=== PATIENT | female | born 1990 | race Caucasian/White ===

== ENCOUNTER 2021-04-30 08:13 | Emergency (ER) | payer SELFPAY ==
[2021-04-30 08:24] VITALS: BP 127/77; PULSE 86; RESP 18; TEMP 36.9; O2SAT 98; BMI 27.4
--- NOTE | 2021-04-30 08:39 | W.ED.ABDPA2 ---
HPI - Abdominal Pain General: Chief Complaint: Abdominal Pain Stated Complaint: SEVERE ABD PAIN: LRQ Time Seen by Provider: 04/30/21 08:15 History of Present Illness: HPI narrative: 30-year-old female presents emergency complaining of right lower quadrant abdominal pain. She has had nausea and vomiting. She has not had any diarrhea. No hematochezia melena hematemesis coffee-ground emesis subjective low-grade fever. No previous episodes she has not noticed anything that seemed to exacerbate or relieve it. MD elicited complaint: abdominal pain Onset (ago): day(s) (3) Location: RLQ Severity: severe Quality: stabbing Radiation: none Exacerbating factors: eating and movement Relieving factors: rest Associated Symptoms: Reports anorexia, bloating, GI cramping, nausea and poor appetite; Denies belching, change in bowel habits, change in stool character, chills, coffee ground emesis, constipation, diarrhea, dyspepsia, dysuria, excessive flatus, fever(s), heartburn, hematochezia, hematuria, hematemesis, fecal incontinence, loose stools, melena, syncope and vomiting Related Data: Date of Last Menstrual Period: 04/30/21 Review of Systems Const: Denies: fever(s) or chills ENMT: Denies: throat pain, ear or mastoid pain, nasal discharge or nasal congestion Card: Denies: syncope Resp: Denies: dyspnea, productive cough or non-productive cough GI: Reports: nausea, bloating and GI cramping; Denies: vomiting, hematemesis, coffee ground emesis, heartburn, diarrhea, constipation, belching, excessive flatus, fecal incontinence, change in bowel habits, change in stool character, hematochezia or melena : Denies: dysuria or hematuria Skin/Breast: Denies: rash or pruritus [facility] ED Female Reproductive History: Date of last menstrual period: 04/30/21 Physical Exam Const: COMMON NORMALS: no acute distress GENERAL APPEARANCE: cooperative and comfortable ORIENTATION/CONSCIOUSNESS: Yes awake, Yes oriented to person, Yes oriented to place and Yes oriented to time HENMT: COMMON NORMALS: normocephalic, atraumatic and hearing grossly normal bilaterally HEAD & SCALP: normocephalic and atraumatic Neck/C-Spine: COMMON NORMALS: no JVD Resp: COMMON NORMALS: normal respiratory effort, No retractions, No use of accessory muscles and clear to auscultation bilaterally AUSCULTATION: clear to auscultation bilaterally Cardio: COMMON NORMALS: no JVD, regular rate, regular rhythm and No murmurs present (Cardio) RATE: regular rate RHYTHM: regular rhythm GI: COMMON NORMALS: No hepatosplenomegaly present AUSCULTATION: Yes normoactive bowel sounds PALPATION: Yes Tenderness to palpation present (GI) Details: RLQ, Yes Guarding due to palpation present (GI) in the RLQ and Yes No hepatosplenomegaly present Extremity: COMMON NORMALS: normal to inspection, capillary refill normal, no clubbing, cyanosis or edema, no calf tenderness and no pedal edema Neuro: SENSORIUM/ORIENTATION: Yes oriented to person, Yes oriented to place and Yes oriented to time Skin: COMMON NORMALS: no rashes or lesions noted GENERAL SKIN EXAM: no rashes or lesions noted Course Vital Signs: Vital signs: Vital Signs Temperature 98.5 F 04/30/21 08:24 Pulse Rate 63 04/30/21 11:15 Respiratory Rate 16 04/30/21 11:15 Blood Pressure 110/64 04/30/21 11:15 Pulse Oximetry 99 04/30/21 11:15 MDM - Abdominal Pain MDM Narrative: Medical decision making narrative: Labs imaging reviewed on the chart. CT shows colitis but otherwise nothing acute. Normal appendix. Discussed labs and imaging with the patient will discharge home n.p.o. except for small amounts of food with pain medications and antibiotics clear liquid diet for 24 to 48 hours and advance as tolerated. Lab Data: Labs: Lab Results 04/30/21 04/30/21 04/30/21 08:33 09:09 09:09 WBC 9.3 10^3/uL 10^3/ uL (4.0-10.0) RBC 5.29 10^6/uL 10^6 /uL (4.1-5.3) Hgb 16.8 g/dL H g/dL (11.5-15.3) Hct 49.4 % H % (37.0-47.0) MCV 93.4 fl fl (81-99) MCH 31.8 pg pg (28.0-34.0) MCHC 34.0 g/dL g/dL (30.0-36.0) RDW 12.1 % % (12.1-15.1) Plt Count 305 10^3/cmm 10^3 /cmm (130-400) MPV 11.6 fL H fL (7.4-10.4) Neut % (Auto) 67.6 % % Lymph % (Auto) 22.4 % % [place] % (Auto) 4.8 % % Eos % (Auto) 3.8 % % Baso % (Auto) 1.0 % % Neut # (Auto) 6.29 10^3/uL 10^3 /uL (1.8-7.7) Lymph # (Auto) 2.1 10^3/uL 10^3/ uL (0.8-4.8) [place] # (Auto) 0.5 10^3/uL 10^3/ uL (0.2-0.9) Eos # (Auto) 0.4 10^3/uL 10^3/ uL (0.0-0.8) Baso # (Auto) 0.1 10^3/uL 10^3/ uL (0.0-0.1) Nucleated RBC % (a uto) 0 % % Nucleated RBCs # 0.0 /100WBC /100W BC Sodium 132 mmol/L L mmol /L (136-145) Potassium 4.1 mmol/L mmol/L (3.5-5.1) Chloride 96 mmol/L L mmol/ L (98-107) Carbon Dioxide 22 mmol/L mmol/L (22-29) Anion Gap 18.1 (5-19) BUN 10 mg/dL mg/dL (6-20) Creatinine 0.5 mg/dL mg/dL (0.5-0.9) GFR Calculation 143.9 mL/min H mL /min (90-130) Glucose 406 mg/dL H mg/dL (65-115) Calculated Osmolal ity 290 mOsm/kg mOsm/ kg (285-295) Calcium 9.6 mg/dL mg/dL (8.5-10.5) Total Bilirubin 0.3 mg/dL mg/dL (0.15-1.2) AST 14 U/L U/L (0-32) ALT 18 U/L U/L (0-33) Alkaline Phosphata se 88 IU/L IU/L (35-105) Total Protein 7.6 g/dL g/dL (6.6-8.7) Albumin 4.1 g/dL g/dL (3.5-5.2) Globulin 3.5 g/dL g/dL (1.3-4.6) Lipase 27 U/L U/L (13-60) HCG, Qual Urine Color Yellow (Yellow) Urine Appearance Sl hazy (CLEAR) Urine pH 5 (5-7) Ur Specific Gravit y 1.010 (1.005-1.030) Urine Protein Neg (Negative) Urine Glucose (UA) 4+ H (Normal) Urine Ketones 1+ H (Negative) Urine Blood 3+ H (Negative) Urine Nitrate Negative (Negative) Urine Bilirubin Neg (Negative) Urine Urobilinogen Norm mg/dL mg/dL (Negative) Ur Leukocyte [place] ase Trace H (Negative) Urine RBC 0-4 /hpf H /hpf (0-2) Urine WBC 15-25 /hpf H /hpf (0-5) Ur Squamous Epith Cells 5-10 /hpf H /hpf (0-5) Amorphous Sediment Not Reportable Urine Bacteria Trace /hpf /hpf (NONE) 04/30/21 09:09 WBC RBC Hgb Hct MCV MCH MCHC RDW Plt Count MPV Neut % (Auto) Lymph % (Auto) [place] % (Auto) Eos % (Auto) Baso % (Auto) Neut # (Auto) Lymph # (Auto) [place] # (Auto) Eos # (Auto) Baso # (Auto) Nucleated RBC % (a uto) Nucleated RBCs # Sodium Potassium Chloride Carbon Dioxide Anion Gap BUN Creatinine GFR Calculation Glucose Calculated Osmolal ity Calcium Total Bilirubin AST ALT Alkaline Phosphata se Total Protein Albumin Globulin Lipase HCG, Qual Negative (Negative) Urine Color Urine Appearance Urine pH Ur Specific Gravit y Urine Protein Urine Glucose (UA) Urine Ketones Urine Blood Urine Nitrate Urine Bilirubin Urine Urobilinogen Ur Leukocyte [place] ase Urine RBC Urine WBC Ur Squamous Epith Cells Amorphous Sediment Urine Bacteria Discharge Plan Discharge Patient Disposition: Home Clinical Impression: Colitis Condition: Stable Prescriptions: New Zofran 4 mg tablet 4 mg PO Q6H PRN (Reason: nausea and vomiting) Qty: 20 RF: 0 Cipro 500 mg tablet 500 mg PO BID Qty: 20 RF: 0 Flagyl 500 mg tablet 500 mg PO BID Qty: 20 RF: 0 hydrocodone-acetaminophen 5-325 mg tablet 1 tab PO Q6H PRN (Reason: pain) Qty: 15 RF: 0 Discharge Orders: Discharge ED (Routine); Ordered 04/30/21 Ordered By: Jayson Horton Discharge Diet: Clear Liquid Discharge Activity: Increase activity as tolerated Patient Instructions: Opioid Safety Activity Restrictions/Additional Instructions: Monitor blood sugars 4-6 times per day. Use short acting insulin as needed to control blood sugars. Start oral antibiotics. Take with small amounts of food. Otherwise clear liquid diet follow-up with your primary care doctor in the next 3 to 4 days return to the ER if you have further problems. Coding Level of Care Code ED Production Supervisor for Geraldog Fwd Exam Comprehensive
--- NOTE | 2021-04-30 08:41 | CTR_ITS ---
PROCEDURE INFORMATION: Exam: CT Abdomen And Pelvis With Contrast Exam date and time: 04/30/2021 8:41 AM Age: 30 years old Clinical indication: Abdominal pain; Localized; Right lower quadrant (rlq); Additional info: Rlq abd pain TECHNIQUE: Imaging protocol: Computed tomography of the abdomen and pelvis with contrast. Total images: 233 Radiation optimization: All CT scans at this facility use at least one of these dose optimization techniques: automated exposure control; mA and/or kV adjustment per patient size (includes targeted exams where dose is matched to clinical indication); or iterative reconstruction. Contrast material: OMNI 300; Contrast volume: 95 ml; Contrast route: INTRAVENOUS (IV); COMPARISON: No relevant prior studies available. RADIATION DOSE METRICS: Total DLP (mGy-cm): 1487.63 FINDINGS: Liver: Normal. No mass. Gallbladder and bile ducts: Normal. No calcified stones. No ductal dilation. Pancreas: Normal. No ductal dilation. Spleen: Normal. No splenomegaly. Adrenal glands: Normal. No mass. Kidneys and ureters: Normal. No hydronephrosis. Stomach and bowel: Thickening of the transverse, descending, and rectosigmoid colon without significant adjacent fatty stranding may represent a mild colitis. Appendix: The appendix has a normal size and configuration. No periappendiceal inflammatory changes are detected. No appendicolith is seen. Intraperitoneal space: Unremarkable. No free air. No significant fluid collection. Vasculature: Incidental venous phlebolith noted. Lymph nodes: Unremarkable. No enlarged lymph nodes. Urinary bladder: Unremarkable as visualized. Reproductive: A tampon is present in the vagina. 19 mm simple appearing left ovarian cyst. No further workup needed. Bones/joints: Unremarkable. No acute fracture. Soft tissues: Unremarkable. CT/CT abdomen pelvis w con* [id number] IMPRESSION: Thickening of the transverse, descending, and rectosigmoid colon without significant adjacent fatty stranding may represent a mild colitis. Radiation Dose CTDIVOL = (mGy): DLP = 1487.63 (mGy-cm)
[2021-04-30 08:57] LABS: Urine Appearance SL Hazy (CLEAR); Urine Color Yellow (Yellow); pH Urine 5 (5-7)
[2021-04-30 08:58] LABS: Add Urine Microscopic? YES; Bilirubin Urine Neg (Negative); Blood Urine 3+ (Negative); Glucose Urine UA 4+ (Normal); Ketones Urine 1+ (Negative); Leukocyte Esterase Urine Trace (Negative); Nitrate Urine Negative (Negative); Protein Urine Neg (Negative); Urobilinogen Urine Norm (Negative)
[2021-04-30] MEDS: morphine 4 mg/mL SDV 1 mL IVP ×2 (09:03→10:28)
[2021-04-30] MEDS: sodium chloride 0.9% 1,000 ML 999 ML IV (09:04)
[2021-04-30] MEDS: ondansetron 2 mg/ML SDV 2 mL 4 MG IVP (09:04)
[2021-04-30 09:08] LABS: RBC Urine 0-4 /hpf (0-2); WBC Urine 15-25 /hpf (0-5)
[2021-04-30 09:09] LABS: Add Urine Culture? Yes; Bacteria Urine TRACE /hpf
[2021-04-30 09:12] VITALS: BP 111/76; PULSE 71; RESP 14; O2SAT 98
[2021-04-30 09:19] LABS: Basophils # 0.1 10^3/uL (0.0-0.1); Eosinophils # 0.4 10^3/uL (0.0-0.8); Eosinophils % 3.8 %; Hematocrit 49.4 % (37.0-47.0); Hemoglobin 16.8 g/dL (11.5-15.3); Lymphocytes # 2.1 10^3/uL (0.8-4.8); Lymphocytes % 22.4 %; Mean Corpuscular Hemoglobin 31.8 pg (28.0-34.0); Mean Corpuscular Volume 93.4 fl (81-99); Mean Platelet Volume 11.6 fL (7.4-10.4); Monocytes # 0.5 10^3/uL (0.2-0.9); Monocytes % 4.8 %; Neutrophils # 6.29 10^3/uL (1.8-7.7); Neutrophils % 67.6 %; Nucleated Red Blood Cells % 0 %; Platelet Count 305 10^3/cmm (130-400); Red Blood Count 5.29 10^6/uL (4.1-5.3); Red Cell Distribution Width 12.1 % (12.1-15.1); White Blood Count 9.3 10^3/uL (4.0-10.0)
[2021-04-30 09:36] LABS: HCG, Serum Qual Negative (Negative)
[2021-04-30 09:42] LABS: Alanine Aminotransferase 18 U/L (0-33); Albumin Level 4.1 g/dL (3.5-5.2); Alkaline Phosphatase 88 IU/L (35-105); Anion Gap 18.1 (5-19); Aspartate Amino Transferase 14 U/L (0-32); Blood Urea Nitrogen 10 mg/dL (6-20); Calcium 9.6 mg/dL (8.5-10.5); Carbon Dioxide 22 mmol/L (22-29); Chloride 96 mmol/L (98-107); Creatinine Clr Calc Pharmacy 159.1778; Globulin 3.5 g/dL (1.3-4.6); Glomerular Filtration Rate 143.9 mL/min (90-130); Glucose 406 mg/dL (65-115); Lipase 27 U/L (13-60); Osmolality Calculated 290 mOsm/kg (285-295); Potassium 4.1 mmol/L (3.5-5.1); Sodium 132 mmol/L (136-145); Total Bilirubin 0.3 mg/dL (0.15-1.2); Total Protein 7.6 g/dL (6.6-8.7)
[2021-04-30] MEDS: iohexol 300 mg/mL 100 mL Btl IV (10:06)
[2021-04-30 10:07] VITALS: BP 119/89; PULSE 73; RESP 14; O2SAT 98
[2021-04-30 10:28] VITALS: RESP 16
[2021-04-30 11:15] VITALS: BP 110/64; PULSE 63; RESP 16; O2SAT 99
== END 2021-04-30 11:17 | disposition home or self-care (01) ==
PROVIDERS: Physician Assistant; Emergency Provider Family Medicine
DX: K52.9 Noninfective gastroenteritis and colitis, unspecified (principal)
CPT/HCPCS: 74177; 80053; 81001; 83690; 84703; 85025; 87086; 96361; 96374; 96375; 96376; 99283; J2270; J2405; J7030; Q9967

== ENCOUNTER 2021-05-26 19:26 | Emergency (ER) | payer MEDICAID, SELFPAY ==
[2021-05-26 19:28] VITALS: BP 132/95; PULSE 76; RESP 20; TEMP 36.6; O2SAT 99; BMI 27.6
--- NOTE | 2021-05-26 19:32 | ECG_ITS ---
[facility] Test Date: 2021-05-26 Pat Name: Kathya Bowen Department: Room: Gender: Female Stage Director: : 1990 Requested By: Eliu Haro Order Number: [id number] Ehsan MD: Leticia Navarro M.D. Measurements Intervals [place] Rate: 67 P: 39 MD: 137 QRS: 34 QRSD: 94 T: 20 QT: 377 QTc: 401 Interpretive Statements SINUS RHYTHM No previous ECG available for comparison Electronically Signed On 05-27-2021 16:10:34 METAL TRIMMER by Leticia Navarro M.D. [id number]
--- NOTE | 2021-05-26 19:32 | XRR_ITS ---
PROCEDURE INFORMATION: Exam: XR Chest Exam date and time: 05/26/2021 7:32 PM Age: 30 years old Clinical indication: Pain; Left-sided; Prior surgery; Surgery type: Stents; Additional info: Chest pain TECHNIQUE: Imaging protocol: XR of the chest. Views: 1 view. COMPARISON: CT abdomen pelvis w con* [id number] 04/30/2021 10:03 AM FINDINGS: Lungs: Unremarkable. No consolidation. Pleural spaces: Unremarkable. No pleural effusion. No pneumothorax. Heart/Mediastinum: Unremarkable. No cardiomegaly. Bones/joints: Unremarkable. XR/XR chest 1V portable [id number] IMPRESSION: No acute findings. Radiation Dose CTDIVOL = (mGy): DLP = (mGy-cm)
--- NOTE | 2021-05-26 19:42 | W.ED.CHESTPA ---
HPI - Chest Pain General: Chief Complaint: Chest Pain Stated Complaint: SUBSTERNAL CHEST PAIN Time Seen by Provider: 05/26/21 19:31 History of Present Illness: HPI narrative: Patient is a 30-year-old transgender male with a past medical history of RI coronary disease diabetes and smoking. She is here with complaints of left-sided chest pain. Is located just left of the sternal border does not radiate she has had some nausea and diaphoresis. It happened while he was at rest no better or worse with activity no shortness of breath. he got 3 doses of nitro at home and Nitropaste which did not help her symptoms. Denies fevers chills vomiting diarrhea altered mental status syncope or headache Is diabetic does not take high blood pressure medicines does smoke does have a personal history of coronary artery disease Does not take any hormone medicines at this time prefers to be called Yakov Review of Systems General: Reports: 10 or more systems reviewed and unremarkable except in HPI and below PFSH ED PFSH: Medical History Psychiatric care Female Reproductive History: Date of last menstrual period: 04/30/21 Physical Exam Const: COMMON NORMALS: no acute distress, average body habitus, patient oriented x3, no limitations, healthy appearing, alert and well nourished HENMT: COMMON NORMALS: normocephalic and atraumatic HEAD & SCALP: normocephalic and atraumatic Neck/C-Spine: COMMON NORMALS: no JVD Chest: COMMONS NORMALS: normal inspection of the chest CHEST: Yes localized rib tenderness with anteroposterior compression (Patient has pain with palpation along the left sternal border from ribs 3 t) Resp: COMMON NORMALS: normal respiratory effort EFFORT & INSPECTION: Yes able to speak in complete sentences and Yes symmetric chest movement Cardio: COMMON NORMALS: no JVD, regular rate, regular rhythm, S1 normal heart sound present, S2 normal heart sound present, No gallops present (Cardio), No clicks present (Cardio) and No murmurs present (Cardio) RATE: regular rate RHYTHM: regular rhythm HEART SOUNDS: S1 normal heart sound present and S2 normal heart sound present GI: COMMON NORMALS: Normal to inspection, nondistended, normoactive bowel sounds present, Soft to palpation and non-tender PALPATION: Yes Soft to palpation Extremity: COMMON NORMALS: normal to inspection, full ROM, capillary refill normal, no joint enlargement and no clubbing, cyanosis or edema Neuro: COMMON NORMALS: patient oriented x3, CN's II-XII intact bilaterally, moves all extremities, no focal motor deficits and no sensory deficits noted SENSORIUM/ORIENTATION: Yes alert Psych: COMMON NORMALS: mental status grossly normal, Normal thought process present, cooperative, normal affect, speech normal and activity/motor behavior normal SPEECH: Yes normal speech THOUGHT PROCESS: Normal thought process present Skin: COMMON NORMALS: no rashes or lesions noted and no wounds GENERAL SKIN EXAM: no rashes or lesions noted Course ED course: Patient doing well after anti-inflammatories. Initial troponin was less than cut off given the short of short time of duration will need to get a second troponin on him Second troponin is still undetectable. Will discharge patient at this time likely costochondritis will instruct him to use NSAIDs heating pad. Return the emergency department any worsening symptoms with this point this appears to be noncardiac event Vital Signs: Vital signs: Vital Signs Temperature 97.9 F 05/26/21 20:06 Pulse Rate 66 05/26/21 22:45 Respiratory Rate 16 05/26/21 22:45 Blood Pressure 115/74 05/26/21 22:45 Pulse Oximetry 98 05/26/21 22:45 MDM - Chest Pain MDM Narrative: Medical decision making narrative: Patient is a 30-year-old female here with chest pain Differential includes RI, pneumonia, costochondritis, angina Given the patient's history we will do a full cardiac work-up on her. However given the fact that I can easily reproduce her pain with palpation of the ribs and sternal border makes me think this is more costochondritis. We will give her a dose of Toradol. See if that helps her pain. We will do this once I see the EKG make sure she is not having a STEMI. Lab Data: Labs: Lab Results 05/26/21 05/26/21 05/26/21 19:38 19:38 19:38 WBC 13.0 10^3/uL H 10 ^3/uL (4.0-10.0) RBC 5.62 10^6/uL H 10 ^6/uL (4.1-5.3) Hgb 17.6 g/dL H g/dL (11.5-15.3) Hct 50.0 % H % (37.0-47.0) MCV 89.0 fl fl (81-99) MCH 31.3 pg pg (28.0-34.0) MCHC 35.2 g/dL g/dL (30.0-36.0) RDW 11.8 % L % (12.1-15.1) Plt Count 276 10^3/cmm 10^3 /cmm (130-400) MPV 12.3 fL H fL (7.4-10.4) Neut % (Auto) 64.3 % % Lymph % (Auto) 25.9 % % [place] % (Auto) 5.5 % % Eos % (Auto) 2.8 % % Baso % (Auto) 1.0 % % Neut # (Auto) 8.35 10^3/uL H 10 ^3/uL (1.8-7.7) Lymph # (Auto) 3.4 10^3/uL 10^3/ uL (0.8-4.8) [place] # (Auto) 0.7 10^3/uL 10^3/ uL (0.2-0.9) Eos # (Auto) 0.4 10^3/uL 10^3/ uL (0.0-0.8) Baso # (Auto) 0.1 10^3/uL 10^3/ uL (0.0-0.1) Nucleated RBC % (a uto) 0 % % Nucleated RBCs # 0.0 /100WBC /100W BC Sodium 132 mmol/L L mmol /L (136-145) Potassium 4.1 mmol/L mmol/L (3.5-5.1) Chloride 93 mmol/L L mmol/ L (98-107) Carbon Dioxide 19 mmol/L L mmol/ L (22-29) Anion Gap 24.1 H (5-19) BUN 10 mg/dL mg/dL (6-20) Creatinine 0.5 mg/dL mg/dL (0.5-0.9) GFR Calculation 143.9 mL/min H mL /min (90-130) Glucose 393 mg/dL H mg/dL (65-115) Calculated Osmolal ity 289 mOsm/kg mOsm/ kg (285-295) Calcium 10.0 mg/dL mg/dL (8.5-10.5) Total Bilirubin 0.2 mg/dL mg/dL (0.15-1.2) AST 13 U/L U/L (0-32) ALT 21 U/L U/L (0-33) Alkaline Phosphata se 94 IU/L IU/L (35-105) Troponin T Baselin e 6 ng/L ng/L (0-10) Troponin T 120 Min [place] Troponin T Total Protein 7.9 g/dL g/dL (6.6-8.7) Albumin 4.8 g/dL g/dL (3.5-5.2) Globulin 3.1 g/dL g/dL (1.3-4.6) 05/26/21 21:36 WBC RBC Hgb Hct MCV MCH MCHC RDW Plt Count MPV Neut % (Auto) Lymph % (Auto) [place] % (Auto) Eos % (Auto) Baso % (Auto) Neut # (Auto) Lymph # (Auto) [place] # (Auto) Eos # (Auto) Baso # (Auto) Nucleated RBC % (a uto) Nucleated RBCs # Sodium Potassium Chloride Carbon Dioxide Anion Gap BUN Creatinine GFR Calculation Glucose Calculated Osmolal ity Calcium Total Bilirubin AST ALT Alkaline Phosphata se Troponin T Baselin e Troponin T 120 Min [place] 6.00 ng/L ng/L (0-10) [place] Troponin T 0 ABS# ABS# (0-10) Total Protein Albumin Globulin EKG Data^: EKG 1: Attestation: I personally reviewed and interpreted this EKG as follows: EKG interpretation date: 05/26/21 EKG interpretation time: 21:07 Interpretation: Normal sinus rhythm. Rate 67 MS interval 137 QRS 94 QTC 393 axis normal no evidence of ischemia or infarct Discharge Plan Discharge Prescriptions: No Action No Known Home Medications RF: 0 Coding Level of Care Code ED Hat Cutter for Chg Fwd Exam Comprehensive
[2021-05-26 19:45] LABS: Basophils # 0.1 10^3/uL (0.0-0.1); Eosinophils # 0.4 10^3/uL (0.0-0.8); Eosinophils % 2.8 %; Hemoglobin 17.6 g/dL (11.5-15.3); Lymphocytes # 3.4 10^3/uL (0.8-4.8); Lymphocytes % 25.9 %; Mean Corpuscular HGB Conc 35.2 g/dL (30.0-36.0); Mean Corpuscular Hemoglobin 31.3 pg (28.0-34.0); Mean Platelet Volume 12.3 fL (7.4-10.4); Monocytes # 0.7 10^3/uL (0.2-0.9); Monocytes % 5.5 %; Neutrophils # 8.35 10^3/uL (1.8-7.7); Neutrophils % 64.3 %; Nucleated Red Blood Cells % 0 %; Platelet Count 276 10^3/cmm (130-400); Red Blood Count 5.62 10^6/uL (4.1-5.3); Red Cell Distribution Width 11.8 % (12.1-15.1)
[2021-05-26 20:06] VITALS: BP 132/95; PULSE 76; RESP 20; TEMP 36.6; O2SAT 99
[2021-05-26] MEDS: aspirin 81 mg Chew Tablet 324 MG PO (20:21)
[2021-05-26] MEDS: ketorolac 30 mg/mL INJ 15 MG IVP (20:22)
[2021-05-26 20:23] LABS: Alanine Aminotransferase 21 U/L (0-33); Albumin Level 4.8 g/dL (3.5-5.2); Alkaline Phosphatase 94 IU/L (35-105); Aspartate Amino Transferase 13 U/L (0-32); Blood Urea Nitrogen 10 mg/dL (6-20); Carbon Dioxide 19 mmol/L (22-29); Chloride 93 mmol/L (98-107); Globulin 3.1 g/dL (1.3-4.6); Glomerular Filtration Rate 143.9 mL/min (90-130); Glucose 393 mg/dL (65-115); Osmolality Calculated 289 mOsm/kg (285-295); Sodium 132 mmol/L (136-145); Total Bilirubin 0.2 mg/dL (0.15-1.2); Total Protein 7.9 g/dL (6.6-8.7)
[2021-05-26 20:27] LABS: Anion Gap 24.1 (5-19); Potassium 4.1 mmol/L (3.5-5.1)
[2021-05-26 20:30] LABS: Troponin(5th) Baseline 6 ng/L (0-10)
[2021-05-26 21:30] VITALS: BP 123/80; PULSE 57; RESP 16; O2SAT 99
[2021-05-26 22:26] LABS: Troponin 5 2HR Delta 0 ABS# (0-10)
[2021-05-26 22:45] VITALS: BP 115/74; PULSE 66; RESP 16; O2SAT 98
[2021-05-26] MEDS: acetaminophen 500 mg Tablet 1000 MG PO (23:11)
[2021-05-26 23:12] VITALS: BP 114/77; PULSE 73; RESP 16; O2SAT 98
[2021-05-27 19:43] LABS: Glucose Point of Care 328 mg/dL (70-110)
== END 2021-05-26 23:10 | disposition home or self-care (01) ==
PROVIDERS: Emergency Provider Family Medicine
DX: F17.200 Nicotine dependence, unspecified, uncomplicated (principal)
CPT/HCPCS: 36415; 36416; 71045; 80053; 82962; 84484; 85025; 93005; 96374; 99284; J1885

== ENCOUNTER 2021-07-12 20:44 | Emergency (ER) | payer MEDICAID, SELFPAY ==
[2021-07-12 21:11] VITALS: BP 131/88; PULSE 122; RESP 16; TEMP 37.5; O2SAT 96
--- NOTE | 2021-07-12 23:17 | ED_ITS ---
HPI - Wound/Laceration General: Chief Complaint: Wound/Laceration Stated Complaint: sore on back Time Seen by Provider: 07/12/21 23:01 History of Present Illness: HPI narrative: Patient is a 30-year-old female comes to the ED with a lesion on lower back. Symptoms started approximately 3 days ago. It started initially as a red sore area on left lower back. The pain, redness and swelling got larger. She also reports having a migraine as well. Patient has a history of migraines and says this has been going on for couple days. She also reports some nausea and emesis with migraine. Associated symptoms: Denies chills, fever(s), nausea or vomiting Review of Systems Const: Denies: fever(s), chills or fatigue Eyes: Denies: change in vision or eye discomfort ENMT: Denies: throat pain, odynophagia, nasal discharge or nasal congestion Card: Denies: chest pain, palpitations, edema, swelling of feet/ankles, dyspnea on exertion or orthopnea Resp: Denies: dyspnea, productive cough or non-productive cough GI: Denies: abdominal pain, nausea, vomiting, diarrhea, constipation or hematochezia : Denies: flank pain, dysuria or hematuria Musc: Denies: neck pain, back pain or extremity swelling Skin/Breast: Reports: new lesions (Abscess on lower back); Denies: rash Neuro: Reports: headache(s); Denies: numbness in extremities or weakness in extremities [facility] ED PFSH: Medical History Psychiatric care Female Reproductive History: Date of last menstrual period: 04/30/21 Physical Exam Const: COMMON NORMALS: no acute distress, patient oriented x3 and alert GENERAL APPEARANCE: cooperative and comfortable HENMT: COMMON NORMALS: normocephalic HEAD & SCALP: normocephalic MOUTH: Normal oral and palatal mucosa present THROAT: posterior oropharynx normal and uvula midline Neck/C-Spine: COMMON NORMALS: supple GENERAL: Yes normal visual inspection Resp: COMMON NORMALS: normal respiratory effort, No retractions, No use of accessory muscles and clear to auscultation bilaterally AUSCULTATION: clear to auscultation bilaterally Cardio: COMMON NORMALS: regular rate, regular rhythm, S1 normal heart sound present, S2 normal heart sound present, No gallops present (Cardio), No clicks present (Cardio), No murmurs present (Cardio) and Peripheral pulses 2+ throughout RATE: regular rate RHYTHM: regular rhythm HEART SOUNDS: S1 normal heart sound present and S2 normal heart sound present PERIPHERAL PULSES: Peripheral pulses 2+ throughout GI: COMMON NORMALS: Normal to inspection, nondistended, normoactive bowel sounds present, Soft to palpation, non-tender and no masses PALPATION: Yes Soft to palpation : COMMON NORMALS: Yes no CVA tenderness BLADDER/KIDNEY EXAM: Yes no CVA tenderness Back/Pelvis: COMMON NORMALS: no CVA tenderness Neuro: COMMON NORMALS: patient oriented x3 and moves all extremities SENSORIUM/ORIENTATION: Yes alert Skin: NARRATIVE SKIN EXAM: Left side lower back?lesion that is warm, tender, erythemic. Fluctuant and not indurated. Findings suggestive of a abscess. GENERAL SKIN EXAM: dry skin Procedures Abscess I/D Site: back (left lower back) Side (if applicable): left Sedation/analgesia: none Local Anesthetic: lidocaine 1% and with epi Amount of anesthesia used (mL): 5 Technique: incised with #11 blade Amount of fluid expressed (mL): 5 Irrigation: Yes Packing used?: none Course Vital Signs: Vital signs: Vital Signs Temperature 98.8 F 07/13/21 00:23 Pulse Rate 98 07/13/21 00:23 Respiratory Rate 16 07/13/21 00:23 Blood Pressure 127/70 07/13/21 00:23 Pulse Oximetry 96 07/13/21 00:23 MDM - Wound/Laceration MDM Narrative: Medical decision making narrative: Patient is a 30-year-old female comes to the ED with a abscess on lower back and migraine headache. Vitals stable. Abscess I&D was performed and over 5 mL of purulent drainage removed. Patient was given Toradol to help with migraine. Abscess cultures obtained and pending. Patient was discharged home with clindamycin. Told to follow-up with PCP in 5 to 7 days reevaluation. Return to ED precautions given. Patient understood and agreed with plan. Discharge Plan Discharge Patient Disposition: Home Clinical Impression: Abscess Headache Qualifiers: Headache type: unspecified Headache chronicity pattern: acute headache Intractability: not intractable Qualified Code(s): R51.9 - Headache, unspecified Condition: Stable Prescriptions: New clindamycin HCl 150 mg capsule 300 mg PO QID 7 Days Qty: 56 RF: 0 No Action No Known Home Medications RF: 0 Discharge Orders: Discharge ED (Routine); Ordered 07/13/21 Ordered By: Landon Hagen Discharge Diet: Regular Discharge Activity: Resume usual activity Patient Instructions: Acute Headache (DC), Abscess (ED), Abscess Incision and Drainage (DC) Activity Restrictions/Additional Instructions: Follow-up with medical provider as directed in 5 to 7 days for reevaluation. Take medications as prescribed. Return to the ER or your medical provider if condition worsens. Please read and understand discharge instructions. Thank you for choosing [facility] for your healthcare needs today. Please realize this is an emergency room and that we are providing you with a medical screening exam and this may not be complete and all inclusive of all the testing and or work up that you may need to determine your ailment or severity of your illness. It is very important that you follow up as instructed or that you return to the Emergency Department should you have concerns or if your condition changes or worsens in any way. Coding Level of Care Code ED Radio Communications Mechanician for Eloy White Exam Comprehensive
[2021-07-12] MEDS: HYDROcodone-acetaminophen 7.5-325 mg Tablet 1 TAB PO (23:34)
[2021-07-13] MEDS: clindamycin 150 mg Capsule 300 MG PO (00:11)
[2021-07-13] MEDS: ketorolac 60 mg/2 mL INJ IM (00:11)
[2021-07-13 00:16] VITALS: BP 127/70; PULSE 98; RESP 16; TEMP 37.1; O2SAT 96
[2021-07-13 00:23] VITALS: BP 127/70; PULSE 98; RESP 16; TEMP 37.1; O2SAT 96
== END 2021-07-13 00:32 | disposition home or self-care (01) ==
PROVIDERS: Emergency Provider Physician Assistant
DX: L02.212 Cutaneous abscess of back [any part, except buttock and flank] (principal); R51.9 Headache, unspecified
CPT/HCPCS: 10060; 87070; 87075; 87077; 87186; 87205; 96372; 99283; J1885

== ENCOUNTER → 2021-07-29 12:38 | Outpatient (BNVA) | payer OTHER, SELFPAY | PROVIDERS: Visit Provider Psychiatry & Neurology Psychiatry | DX: F32.A Depression, unspecified (principal); Z03.89 Encounter for observation for other suspected diseases and conditions ruled out; Z79.899 Other long term (current) drug therapy | CPT/HCPCS: 80053; 80061; 83036; 83721; 84443; 85025 ==